=== PATIENT | male | born 1940 | race Caucasian/White ===

== ENCOUNTER 2017-07-25 11:00 | Inpatient (IN) | payer OTHER, MEDICARE ==
[2017-06-16 14:01] VITALS: BMI 33.0
[2017-06-16 14:43] LABS: PTT PATIENT 25.8 SECONDS (21.0-31.0)
--- NOTE | 2017-06-16 14:51 | PAT Medication Instructions ---
Service Date Jun 16, 2017. Current Home Medication List Aspirin (Aspirin Ec), 81 MG PO QAM Bioflavonoid Products (Ludmila-C), 1 TAB PO QAM Calcium Citrate-Vitamin D (Citracal + D3 Maximum), 1 TAB PO QAM Escitalopram Oxalate (Lexapro), Unknown Dose PO QAM Levothyroxine Sodium (Levothyroxine Sodium), 1 TAB PO 2XWK Levothyroxine Sodium (Levothyroxine Sodium), 0.5 TAB PO 5XWK Memantine (Namenda), 10 MG PO BID Multivitamin (Multivitamin), 1 TAB PO QPM Oxcarbazepine (Trileptal), 2 TAB PO BID Potassium Chloride (Micro-K Ext Rel), 10 MEQ PO QAM Pravastatin (Pravachol ), Unknown Dose PO HS Risperidone (Risperdal), 0.5 MG PO HS Rivastigmine Tartrate (Exelon), 6 MG PO BID Medication Instructions For Your Scheduled Surgery - Hold the following medications the morning of surgery: Potassium Chloride (Micro-K Ext Rel), 10 MEQ PO QAM Bioflavonoid Products (Ludmila-C), 1 TAB PO QAM Calcium Citrate-Vitamin D (Citracal + D3 Maximum), 1 TAB PO QAM - Take the following medications the morning of surgery with a sip of water OTHERWISE NOTHING TO EAT OR DRINK AFTER MIDNIGHT: Rivastigmine Tartrate (Exelon), 6 MG PO BID Aspirin (Aspirin Ec), 81 MG PO QAM Escitalopram Oxalate (Lexapro), Unknown Dose PO QAM Levothyroxine Sodium (Levothyroxine Sodium) Oxcarbazepine (Trileptal), 2 TAB PO BID Memantine (Namenda), 10 MG PO BID - Take the following medications as scheduled the night before surgery: Rivastigmine Tartrate (Exelon), 6 MG PO BID Pravastatin (Pravachol ), Unknown Dose PO HS Risperidone (Risperdal), 0.5 MG PO HS Oxcarbazepine (Trileptal), 2 TAB PO BID Memantine (Namenda), 10 MG PO BID Multivitamin (Multivitamin), 1 TAB PO QPM If you have any questions please call us at [phone] or [phone] or [phone]
[2017-06-16 15:06] LABS: BASO % 0.8 %; BASO ABS # 0.05 K/uL (0-0.2); EOS ABS # 0.31 K/uL (0-0.5); HEMATOCRIT 44.1 % (42-52); HEMOGLOBIN 14.9 g/dL (14.0-18.0); IG# 0.03 K/uL (0.00-0.02); LYMPH % 20.5 %; LYMPH ABS # 1.26 K/uL (1.2-3.4); MEAN CELL VOLUME 92.8 fL (80-100); MEAN CORPUSCULAR HEMOGLOBIN 31.4 pg (25-34); MEAN CORPUSCULAR HGB CONC 33.8 g/dl (32-36); MEAN PLATELET VOLUME 10.5 fL (7.4-10.4); MONO ABS # 0.37 K/uL (0.11-0.59); NEUT % 67.2 %; NEUT ABS # 4.14 K/uL (1.4-6.5); PLATELET COUNT 196 K/uL (130-400); RED CELL DISTRIBUTION WIDTH CV 13.5 % (11.5-14.5); RED CELL DISTRIBUTION WIDTH SD 45.7 fL (36.4-46.3); WHITE BLOOD COUNT 6.16 K/uL (4.8-10.8)
[2017-06-16 15:13] LABS: ALBUMIN 3.8 gm/dl (3.4-5.0); CALCIUM 9.7 mg/dl (8.5-10.1); CREATININE 1.07 mg/dl (0.60-1.40); POTASSIUM 4.2 mmol/L (3.5-5.1)
--- NOTE | 2017-06-16 15:24 | DIAGNOSTIC IMAGING REPORT ---
CHEST 2 VIEWS ROUTINE CLINICAL HISTORY: PAT preoperative evaluation COMPARISON STUDY: No previous studies for comparison. FINDINGS: Mild cardiomegaly. Permanent bipolar cardiac pacemaker. Lungs are clear. Mild emphysematous change. No focal infiltrate. IMPRESSION: Chronic and postoperative change. No acute process. The above report was generated using voice recognition software. It may contain grammatical, syntax or spelling errors. Electronically signed by: Daniel Garcia M.D. 06/16/2017 3:23 PM Dictated Date/Time: 06/16/2017 3:22 PM
[2017-06-17 06:54] LABS: HEMOGLOBIN A1C 5.3 % (4.5-5.6)
[2017-07-11 14:37] VITALS: BMI 33.0
--- NOTE | 2017-07-24 11:13 | HISTORY & PHYSICAL EXAMINATION ---
DATE OF ADMISSION: 07/25/2017 CHIEF COMPLAINT: Right knee pain. HISTORY OF PRESENT ILLNESS: Jung is a 77-year-old male with a multiple year history of right knee pain. The patient rates his pain at 8/10. He has pain with his daily activities. He has limited standing and walking tolerance. Pain is worse with weightbearing. The patient has had injections, NSAID and topical treatments without relief. He has failed conservative treatment and is scheduled for right knee replacement. PAST MEDICAL HISTORY: Prostate cancer, dementia, and thyroid disease. He denies heart disease, diabetes or DVT. PAST SURGICAL HISTORY: Pacemaker insertion. SOCIAL HISTORY: The patient denies alcohol or tobacco use. He lives in a single story home. He is and retired. FAMILY HISTORY: Negative for DVT. MEDICATIONS: Potassium 99 mg daily, multivitamin 1 daily, Lexapro 5 mg daily, pravastatin 10 mg daily, Ludmila-C, rivastigmine 6 mg 1 capsule 2 times daily, Namenda 10 mg b.i.d., Synthroid 175 mcg daily, Trileptal 300 mg 2 tablets b.i.d., Risperdal 0.5 mg at bedtime, and aspirin 81 mg daily. ALLERGIES: None. REVIEW OF SYSTEMS: See HPI. Ten other systems reviewed. All negative. PHYSICAL EXAMINATION: VITAL SIGNS: Height 5 feet 2 inches, weight 193 pounds, and BMI is 35. GENERAL: This is a well-developed and well-nourished male, who is alert and oriented x3. Mood and affect are appropriate. HEENT: Normocephalic and atraumatic. Mucous membranes are moist and intact. NECK: Supple without lymphadenopathy. HEART: Regular rate and rhythm without murmurs, rubs or gallops. LUNGS: Clear to auscultation without wheezes or rhonchi. ABDOMEN: Soft and nontender. Bowel sounds are equal and active. EXTREMITIES: No ecchymosis, redness or warmth. He has varus deformity. Range of motion is from 3-115 degrees with +1 laxity. He is neurovascularly intact with +5/5 strength. X-RAY EXAMINATION: AP and lateral views show joint space narrowing and osteophyte formation. IMPRESSION: Degenerative joint disease, right knee. PLAN: The patient will be admitted for a non-block right total knee arthroplasty with Dr. Sexton. We will plan on aspirin for DVT prophylaxis. The patient would like to go to [facility] postoperatively. PCP is Dr. Stearns and information technology auditor, Dr. Luis. GIORGIO
[2017-07-25] VITALS (7 sets, daily range): BP systolic 91–142; BP diastolic 55–93; PULSE 61–86; TEMP 36.6–36.8; O2SAT 93–97; Ht 157.5 cm; Wt 83.3 kg
[~2017-07-25] VITALS: Ht 157.5 cm; Wt 83.3 kg
--- NOTE | 2017-07-25 09:44 | History & Physical Bridge Note ---
H&P Re-Evaluation Bridge Note: I have examined the patient, reviewed the History & Physical and in the interval since the performance of the History & Physical I have noted the following changes of clinical significance: No changes noted
[~2017-07-25 11:00] MED LIST: ACETAMINOPHEN 500 MG TAB PO SCH; ASPI81TA28 PO; BIOF500T PO; BUPIVACAINE 0.25% 30 ML VIAL ONE; BUPIVACAINE 0.5 % 5 MG/1 ML PF 10ML VIAL ONE; CALC1TAB9 PO; CEFAZOLIN 2000MG IV PUSH 10 ML IV SCH; CeleBREX 200 MG CAP PO SCH; DEXAMETHASONE 4 MG TAB PO SCH; ESCI1TAB6 PO; FAMOTIDINE 20 MG TAB PO SCH; GABAPENTIN 300 MG CAP PO SCH; LACTATED RINGER'S 1000ML 1,000 ML IV SCH; LACTATED RINGER'S 1000ML 500 ML IV SCH; LACTATED RINGER'S 1000ML IV SCH; LEVO175T3 PO; METOCLOPRAMIDE HCL 10 MG TAB PO SCH; MULT-506 PO; NMN5 PO; OXCA300T PO; POTA10CA28 PO; PRAV20TA PO; RISP0.5T10 PO; RIVA3CAP4 PO; ROPIVACAINE 5MG/ML 30 ML 150 MG, BUPIVACAINE 0.5% MPF INJ 30 ML, EpINEphrine HCL INJ 0.... INFIL SCH
[2017-07-25] MEDS ORDERED: MIDAZOLAM HCL 1 MG/ML 2ML VIAL ONE (11:10)
[2017-07-25] MEDS ORDERED: FENTANYL CITRATE INJ 50 MCG/1 ML 2 ML VIAL ONE (11:11)
[2017-07-25] MEDS ORDERED: ONDANSETRON INJ 2 MG/ML 2 ML VIAL ONE (11:41)
[2017-07-25] MEDS ORDERED: PROPOFOL IV EMULSION 10 MG/ML 20 ML VIAL IV ONE (11:41)
[2017-07-25] MEDS ORDERED: LIDOCAINE HCL 2% 2 ML VIAL (20MG/ML) ONE (11:41)
[2017-07-25] MEDS ORDERED: ORTHO JOINT ANESTHETIC ONE (11:55)
[2017-07-25] MEDS ORDERED: POVIDONE-IODINE OP SOLN 30 ML BTL ONE (11:55)
[2017-07-25] MEDS ORDERED: BACITRACIN 50000 UNIT VIAL ONE (11:55)
[2017-07-25] MEDS ORDERED: MoRPHine SULFATE 2 MG/ML CARP IV PRN ×2 (12:45→16:00)
[2017-07-25] MEDS ORDERED: MAGNESIUM HYDROXIDE SUSP 30 ML UDC PO PRN (12:45)
[2017-07-25] MEDS ORDERED: KETOROLAC TROMETHAMINE 30 MG/ML VIAL IV. PRN (12:45)
[2017-07-25] MEDS ORDERED: ONDANSETRON INJ 2 MG/ML 2 ML VIAL IV PRN ×2 (12:45)
[2017-07-25] MEDS ORDERED: CEFAZOLIN IV 2,000 MG in DEXTROSE 5% 50ML 50 ML IV SCH (12:45)
[2017-07-25] MEDS ORDERED: ZOLPIDEM TARTRATE 5 MG TAB PO PRN (12:45)
[2017-07-25] MEDS ORDERED: SOD PHOSPHATE/SOD BIPHOSPHATE ENEMA 132 ML BTL PR PRN (12:45)
[2017-07-25] MEDS ORDERED: HYDROmorphone INJ 2 MG/ML SYR/VIAL IV PRN (12:45)
[2017-07-25] MEDS ORDERED: ATROPINE SULFATE 0.1 MG/ML 5ML SYR IV PRN (12:45)
[2017-07-25] MEDS ORDERED: PHENYLEPHRINE 100MCG/ML 5ML SYR IV PRN (12:45)
[2017-07-25] MEDS ORDERED: KETOROLAC TROMETHAMINE 15 MG/ML VIAL IV. PRN (12:45)
[2017-07-25] MEDS ORDERED: ALUMINUM/MAGNESIUM/SIMETH (MAALOX MAX) 30 ML UDC PO PRN (12:45)
[2017-07-25] MEDS ORDERED: BISACODYL 10 MG SUPP PR PRN (12:45)
[2017-07-25] MEDS ORDERED: EpHEDrine SULFATE INJ 50 MG/ML AMP IV PRN (12:45)
[2017-07-25] MEDS ORDERED: EpHEDrine SULFATE 50MG/5ML SYR ONE (13:28)
--- NOTE | 2017-07-25 13:47 | [facility] Operative Report ---
Operative Report Operative Date Jul 25, 2017. Pre-Operative Diagnosis Right Knee Degenerative Joint Disease Post-Operative Diagnosis Right Knee Degenerative Joint Disease Procedure(s) Performed Right Total Knee Arthroplasty, Cemented utilizing Mosher & Nephew nonlocked total knee arthroplasty size 6 femur 7 tibia 12 Indu [address] Sexton Senior Sales Administrator Surgeon(s) Daniel Salazar PA-C Estimated Blood Loss 5 mL Findings Patient presents with severe end-stage DJD of the right knee with varus alignment subchondral cystic changes osteophytes marginal osteophytes sclerosis failing attempts at conservative management including physical therapy anti- inflammatories Roto-Rest activity modification injections viscus of rotations presents for total knee arthroplasty Specimens A: Right knee bone and tissue Complication(s) None Disposition Recovery Room / PACU Indications Patient presents with severe end-stage tricompartmental DJD size surgery patient was noted to have findings consistent with subchondral sclerosis osteophytes marginal osteophytes varus alignment bone the bone changes patient' s failed attempts at conservative management including physical therapy anti- inflammatories relative rest activity modification as well as corticosteroid injection patient presents for total knee arthroplasty Description of Procedure After proper prepping and draping of the Right lower extremity anterior midline incision was made over the region of the extensor extensor mechanism after meticulous hemostasis was obtained and maintained in subcutaneous tissues a medial parapatellar incision was made The patella was subluxed lateralward the medial lateral gutter were cleaned from any hypertrophic synovitis and scar tissue of the distal femoral block was placed and the distal femoral osteotomy cut was made subsequently the chamfers anterior and posterior osteotomy cuts were made utilizing the 4-in-1 block the tibia was subsequently subluxed anteriorward medial and ateral meniscal remnants were excised in their entirety remnants of the anterior and posterior cruciate ligaments were excised in their entirety excellent exposure of the proximal tibia was obtained the tibial osteotomy guide was placed on the proximal tibial osteotomy cut was made once again the knee was irrigated with copious amounts of sterile saline solution the patella was subsequently everted lateralward thickened scar tissue around the patella was removed the patella was subsequently cut utilizing a freehand technique and was drilled prepared for final preparation and placement of patella socially flexion-extension gaps were checked and the equal and symmetric trials were placed to the appropriate femoral and tibial trials with poly-spacer being placed for equal flexion and extension gaps and full range of motion including extension to 0 and flexion to 140 the trial components after having been taken to recovery range of motion was subsequently removed meticulous hemostasis was obtained and maintained subsequently a knee block injection of joint cocktail including ropivacaine 0.5% 150 mg. Bupivacaine 0.5 % epinephrine 1-200,030 mL's toradol 30 mg dexamethasone 4 mg ketamine 10 mg clonidine 100 micrograms normal saline solution 30 mg was infiltrated into the soft tissues of the posterior knee medial lateral gutters and periosteal synovium special attention was paid to protect neurovascular structures at all times subsequently trial components having been removed the knee was irrigated with sterile saline solution. debris was removed the proximal tibia was subsequently prepared and was made ready for the placement of the tibial component tibial component was also cemented and tamped into position the femoral component was subsequently placed and cemented in the position the patellar component was subsequently cemented in position because hemostasis once again obtained and maintained wound having been thoroughly irrigated with debridement and debridement lavage was performed as well as a medial parapatellar incision closed with #1 Vicryl in interrupted fashion subcutaneous was closed with #2 Vicryl skin was closed with skin clips. PA-C was necessary for prepping and drapping as well as wound closure of deep fascia Sub cutaneous tissue and skin and was necessary for the case. A sterile compressive dressing was placed patient was taken to recovery in stable condition of report dictated by Darshan I attest to the content of the Intraoperative Record and any orders documented therein. Any exceptions are noted below. I attest to the content of the Intraoperative Record and any orders documented therein. Any exceptions are noted below.
--- NOTE | 2017-07-25 14:47 | DIAGNOSTIC IMAGING REPORT ---
R KNEE 1 OR 2 VIEWS ROUTINE HISTORY: 77 years-old Male AP/LATERAL IN PACU RIGHT KNEE status post right knee total joint arthroplasty. Degenerative joint disease. COMPARISON: None available TECHNIQUE: 2 views of the right knee FINDINGS: Postoperative changes compatible with right knee total joint arthroplasty and patellar resurfacing. Surgical drain is in place. Expected postsurgical soft tissue swelling and deep tissue air without malalignment. Peripheral vascular disease. No retained foreign bodies identified. IMPRESSION: Status post right knee total joint arthroplasty and patellar resurfacing with satisfactory alignment. The above report was generated using voice recognition software. It may contain grammatical, syntax or spelling errors. Electronically signed by: Alireza Rivera M.D. 07/25/2017 2:46 PM Dictated Date/Time: 07/25/2017 2:45 PM
--- NOTE | 2017-07-25 15:40 | Anesthesiology Progress Note ---
Anesthesia Post Op Note Date & Time Jul 25, 2017 at 15:40 Vital Signs Pain Intensity: 0 Vital Signs Past 12 Hours Date Time Temp Pulse Resp B/P (MAP) Pulse Ox O2 Delivery O2 Flow Rate FiO2 07/25/17 15:30 37.1 65 18 118/74 96 Nasal Cannula 2 07/25/17 15:20 64 18 122/77 98 Nasal Cannula 2 07/25/17 15:10 63 18 117/74 97 Nasal Cannula 2 07/25/17 15:00 69 18 116/71 97 Nasal Cannula 2 07/25/17 14:50 63 18 118/70 98 Nasal Cannula 2 07/25/17 14:40 63 18 118/67 98 Nasal Cannula 2 07/25/17 14:30 64 18 107/68 98 Nasal Cannula 2 07/25/17 14:22 36.3 62 18 98/60 96 Nasal Cannula 2 07/25/17 12:00 36.6 65 18 142/93 95 Room Air Notes Mental Status: alert / awake / arousable, participated in evaluation Pt Amnestic to Procedure: Yes Nausea / Vomiting: adequately controlled Pain: adequately controlled Airway Patency, RR, SpO2: stable & adequate BP & HR: stable & adequate Hydration State: stable & adequate Anesthetic Complications: no major complications apparent
[2017-07-25] MEDS ORDERED: MoRPHine SULFATE 10 MG/ML CARP/VIAL IV PRN (16:00)
[2017-07-25] MEDS ORDERED: MoRPHine SULFATE 4 MG/ML 1 ML CARP\\VIAL IV PRN (16:00)
[2017-07-25] MEDS: FERROUS GLUCONATE 324 MG TAB PO SCH (18:34)
[2017-07-25] MEDS: PRAVASTATIN SOD 20 MG TAB PO SCH (18:34)
[2017-07-25] MEDS: CEFAZOLIN IV 2,000 MG in SYRINGE 0 ML IV SCH (21:08)
[2017-07-25] MEDS: ACETAMINOPHEN 500 MG TAB PO SCH (21:10)
[2017-07-25] MEDS: RISPERIDONE 0.5 MG TAB PO SCH (21:10)
[2017-07-25] MEDS: OXCARBAZEPINE 150 MG TAB PO SCH (21:11)
[2017-07-25] MEDS: SENNA 8.6 MG TAB PO SCH (21:11)
[2017-07-25] MEDS: DOCUSATE SODIUM 100 MG CAP PO SCH (21:12)
[2017-07-25] MEDS: MEMANTINE 5 MG TAB PO SCH (21:12)
[2017-07-25] MEDS: RIVASTIGMINE TARTRATE (EXELON) 1.5 MG CAP PO SCH (21:13)
[2017-07-25] MEDS: ASPIRIN 81 MG ECTAB PO SCH (21:13)
[2017-07-25] MEDS ORDERED: INFLUENZA VACCINE HIGH DOSE 65+ 0.5 ML SYR IM. ONE (22:00)
[2017-07-25] MEDS ORDERED: INFLUENZA ADMINISTRATION CHARGE ONE (22:00)
[2017-07-25] MEDS ORDERED: PNEUMOCOCCAL ADMINISTRATION CHARGE ONE (22:15)
[2017-07-25] MEDS ORDERED: PNEUMOCOCCAL POLYSACCHARIDES 25 MCG/0.5 ML VIAL/SYR IM. ONE (22:15)
[2017-07-25] MEDS: D5W AND 1/2NSS + 20MEQ KCL 1,000 ML IV SCH (23:45)
[2017-07-26 03:50] VITALS: BP 92/50; PULSE 64; TEMP 36.7; O2SAT 94
[2017-07-26] MEDS: CEFAZOLIN IV 2,000 MG in SYRINGE 0 ML IV SCH (04:00)
[2017-07-26] MEDS: D5W AND 1/2NSS + 20MEQ KCL 1,000 ML IV SCH ×2 (04:01→09:00)
[2017-07-26] MEDS ORDERED: NURSING VERBAL MED ORDER ONE ×2 (04:15→11:45)
[2017-07-26] MEDS: ACETAMINOPHEN 500 MG TAB PO SCH ×3 (05:22→21:55)
[2017-07-26] MEDS ORDERED: LEVOTHYROXINE 175 MCG TAB PO SCH (06:30)
[2017-07-26 06:34] LABS: HEMATOCRIT 29.3 % (42-52); HEMOGLOBIN 9.8 g/dL (14.0-18.0); MEAN CELL VOLUME 89.3 fL (80-100); MEAN CORPUSCULAR HEMOGLOBIN 29.9 pg (25-34); MEAN CORPUSCULAR HGB CONC 33.4 g/dl (32-36); MEAN PLATELET VOLUME 10.4 fL (7.4-10.4); PLATELET COUNT 144 K/uL (130-400); RED CELL DISTRIBUTION WIDTH CV 12.9 % (11.5-14.5); RED CELL DISTRIBUTION WIDTH SD 41.9 fL (36.4-46.3)
[2017-07-26 07:00] LABS: CALCIUM 8.1 mg/dl (8.5-10.1); CREATININE 0.92 mg/dl (0.60-1.40); POTASSIUM 4.6 mmol/L (3.5-5.1)
[2017-07-26 08:01] VITALS: BP 102/60; PULSE 61; TEMP 36.5; O2SAT 93
--- NOTE | 2017-07-26 08:16 | Anesthesia Procedure Note ---
Anesthesia Epidural Removal Nt Vital Signs Notes Notes: Entered in error. no epidural present.
[2017-07-26 08:18] VITALS: O2SAT 93
[2017-07-26] MEDS: PANTOprazole SOD 40 MG TAB PO SCH (09:00)
[2017-07-26] MEDS: CALCIUM 600MG + VIT D 400 IU TAB PO SCH (09:00)
[2017-07-26] MEDS: POTASSIUM CHLORIDE 10 MEQ TABCR PO SCH (09:02)
[2017-07-26] MEDS: RIVASTIGMINE TARTRATE (EXELON) 1.5 MG CAP PO SCH ×2 (09:02→20:43)
[2017-07-26] MEDS: MEMANTINE 5 MG TAB PO SCH ×2 (09:03→20:42)
[2017-07-26] MEDS: DOCUSATE SODIUM 100 MG CAP PO SCH ×2 (09:03→20:43)
[2017-07-26] MEDS: OXCARBAZEPINE 150 MG TAB PO SCH ×2 (09:04→20:42)
[2017-07-26] MEDS: MULTIVITAMIN TAB PO SCH (09:04)
[2017-07-26] MEDS: FERROUS GLUCONATE 324 MG TAB PO SCH ×3 (09:04→17:54)
[2017-07-26] MEDS: ASPIRIN 81 MG ECTAB PO SCH ×2 (09:04→20:43)
--- NOTE | 2017-07-26 09:58 | Orthopedic Progress Note ---
Orthopedic Progress Note Date of Service Jul 26, 2017. Subjective Post OP Day: 1 (s/p Right TKA) Reports: feeling well, pain controlled w PO medications, Denies: complaints, chest pain, SOB, nausea / vomiting, light headedness, calf pain Objective calves soft nontender, N/V intact, capillary refill less than 2 sec., dressing C /D/I, A&O x3, toes mobile, hemovac drainage (350cc/8 hours) Date Time Temp Pulse Resp B/P (MAP) Pulse Ox O2 Delivery O2 Flow Rate FiO2 07/26/17 08:18 93 Room Air 07/26/17 08:01 36.5 61 22 102/60 (74) 93 Room Air 07/26/17 03:50 36.7 64 18 92/50 (64) 94 Room Air 07/25/17 23:40 Room Air 07/25/17 23:29 36.8 70 18 91/55 (67) 93 Room Air 07/25/17 19:05 36.6 61 18 97/63 (74) 97 Nasal Cannula 2.0 07/25/17 18:05 36.6 86 18 107/68 (81) 95 Nasal Cannula 2.0 07/25/17 17:05 36.6 66 18 114/68 (83) 97 Nasal Cannula 2.0 07/25/17 16:35 36.6 74 16 106/66 (79) 97 Nasal Cannula 2.0 07/25/17 16:05 Nasal Cannula 2.0 07/25/17 16:05 97 Nasal Cannula 2.0 07/25/17 15:40 37.1 66 18 111/60 96 Nasal Cannula 2 07/25/17 15:30 37.1 65 18 118/74 96 Nasal Cannula 2 07/25/17 15:20 64 18 122/77 98 Nasal Cannula 2 07/25/17 15:10 63 18 117/74 97 Nasal Cannula 2 07/25/17 15:00 69 18 116/71 97 Nasal Cannula 2 07/25/17 14:50 63 18 118/70 98 Nasal Cannula 2 07/25/17 14:40 63 18 118/67 98 Nasal Cannula 2 07/25/17 14:30 64 18 107/68 98 Nasal Cannula 2 07/25/17 14:22 36.3 62 18 98/60 96 Nasal Cannula 2 07/25/17 12:00 36.6 65 18 142/93 95 Room Air Laboratory Results 24 Hours: Test 07/26/17 05:33 Hematocrit 29.3 % Hemoglobin 9.8 g/dL Prothromb Time International Ratio 1.0 Prothrombin Time 10.7 SECONDS Assessment & Plan Assessment: POD #1 s/p Right TKA -H/H stable -PT/OT -dvt proph with srikanth/scd/asa -patient would like to go to [facility], will await CM to discuss Discharge Planning Discharge Planning: uncertain DVT Prophylaxis: TEDs, SCDs, ASA
[2017-07-26] MEDS: OXYCODONE HCL IR 5 MG TAB (IMMEDIATE RELEASE) PO PRN (11:38)
[2017-07-26 11:43] VITALS: BP 96/60; PULSE 60; TEMP 36.4; O2SAT 95
--- NOTE | 2017-07-26 12:00 | Clinical Documentation Query ---
CLINICAL DOCUMENTATION QUERY A 77-year-old male with a multiple year history of right knee pain and s/p right total knee arthroplasty. In your clinical opinion is this patient being managed for: ( ) Acute blood-loss anemia ( ) Not Agree (X ) Other explanation of clinical findings (Please Explain) ( ) Unable to determine (Please Define) ( ) Need to Discuss Expected post-op blood loss The medical record reflects the following clinical findings, treatment, and risk factors. Clinical Indicators: Hgb 14.9 trending down >3gm to 9.8 Treatment: Type and cross, IV hydration Risk Factors: Age, s/p surgical intervention IF IN AGREEMENT, YOU MUST DOCUMENT ABOVE DIAGNOSTIC STATEMENT IN DAILY PROGRESS NOTES AND DISCHARGE SUMMARY. This document is not part of the patient's record. Please clarify and document your clinical opinion in the progress notes and discharge summary. Terms such as "probable", "suspected", "likely", "questionable", "possible", or "still to be ruled out" are acceptable. Thank You, Vanessa East RN [phone]
[2017-07-26] MEDS: TRAMADOL HCL 50 MG TAB PO PRN ×2 (13:13→20:42)
[2017-07-26 14:54] VITALS: BP 101/71; PULSE 60; TEMP 36.4; O2SAT 94
[2017-07-26] MEDS: PRAVASTATIN SOD 20 MG TAB PO SCH (17:54)
[2017-07-26] MEDS: RISPERIDONE 0.5 MG TAB PO SCH (20:42)
[2017-07-26] MEDS: CeleBREX 200 MG CAP PO SCH (20:43)
[2017-07-26] MEDS: SENNA 8.6 MG TAB PO SCH (20:43)
[2017-07-26 23:48] VITALS: BP 113/69; PULSE 61; TEMP 36.5; O2SAT 95
[2017-07-27] MEDS: ACETAMINOPHEN 500 MG TAB PO SCH ×2 (05:25→12:47)
[2017-07-27] MEDS: TRAMADOL HCL 50 MG TAB PO PRN ×2 (05:41→16:27)
[2017-07-27] MEDS ORDERED: LEVOTHYROXINE 175 MCG TAB PO SCH (06:30)
--- NOTE | 2017-07-27 07:17 | Orthopedic Progress Note ---
Orthopedic Progress Note Date of Service Jul 27, 2017. Subjective Reports: feeling well, Denies: chest pain, SOB, nausea / vomiting, light headedness, calf pain Additional Notes: Mild pain off and on in the operative knee. Objective calves soft nontender, N/V intact, incision C/D/I, A&O x3, toes mobile Date Time Temp Pulse Resp B/P (MAP) Pulse Ox O2 Delivery O2 Flow Rate FiO2 07/26/17 23:52 Room Air 07/26/17 23:48 36.5 61 18 113/69 (84) 95 Room Air 07/26/17 16:10 Room Air 07/26/17 14:54 36.4 60 18 101/71 (81) 94 Room Air 07/26/17 11:43 36.4 60 20 96/60 (72) 95 Room Air 07/26/17 08:25 Room Air 07/26/17 08:18 93 Room Air 07/26/17 08:01 36.5 61 22 102/60 (74) 93 Room Air Assessment & Plan Assessment: POD #2 s/p Right TKA -H/H stable -PT/OT -dvt proph with srikanth/scd/asa -Awaiting approval for [facility] Discharge Planning DVT Prophylaxis: TEDs, ASA Therapy: Physical Therapy
[2017-07-27 07:25] VITALS: BP 138/80; PULSE 64; TEMP 36.9; O2SAT 94
[2017-07-27] MEDS: MULTIVITAMIN TAB PO SCH (08:56)
[2017-07-27] MEDS: FERROUS GLUCONATE 324 MG TAB PO SCH ×2 (08:56→12:48)
[2017-07-27] MEDS: CeleBREX 200 MG CAP PO SCH (08:56)
[2017-07-27] MEDS: RIVASTIGMINE TARTRATE (EXELON) 1.5 MG CAP PO SCH (08:56)
[2017-07-27] MEDS: PANTOprazole SOD 40 MG TAB PO SCH (08:56)
[2017-07-27] MEDS: CALCIUM 600MG + VIT D 400 IU TAB PO SCH (08:56)
[2017-07-27] MEDS: DOCUSATE SODIUM 100 MG CAP PO SCH (08:57)
[2017-07-27] MEDS: OXCARBAZEPINE 150 MG TAB PO SCH (08:57)
[2017-07-27] MEDS: ASPIRIN 81 MG ECTAB PO SCH (08:57)
[2017-07-27] MEDS: MEMANTINE 5 MG TAB PO SCH (08:57)
[2017-07-27] MEDS: POTASSIUM CHLORIDE 10 MEQ TABCR PO SCH (08:57)
[2017-07-27] MEDS: OXYCODONE HCL IR 5 MG TAB (IMMEDIATE RELEASE) PO PRN (09:01)
[2017-07-27] MEDS ORDERED: ASPI81TA28 PO (12:02)
[2017-07-27] MEDS ORDERED: CLB200 PO (12:02)
[2017-07-27] MEDS ORDERED: ACET-24 PO (12:02)
[2017-07-27] MEDS ORDERED: RXC5 PO (12:02)
[2017-07-27] MEDS ORDERED: SENN-61 PO (12:02)
[2017-07-27] MEDS ORDERED: FRRG PO (12:02)
--- NOTE | 2017-07-27 12:09 | Discharge Instructions ---
Discharge Instructions Date of Service Jul 27, 2017. Admission Reason for Admission: Right Knee Osteoarthritis Discharge Discharge Diagnosis / Problem: RIGHT KNEE DJD Discharge Goals Goal(s): Decrease discomfort, Improve function, Increase independence Activity Recommendations Activity Level: Assistance Required Therapies: Physical Therapy (TKA PROTOCOL), Occupational Therapy Weightbearing Status: Right weightbearing (as tolerated) . Additional Information Patient informed of condition: Yes Advance Directives: No DNR: No Level of Care: Acute Rehab Communicable Disease: No Prognosis: Stable Garcia Catheter: No Instructions / Follow-Up Instructions / Follow-Up ACTIVITY RECOMMENDATIONS: SELF CARE INSTRUCTIONS AFTER TOTAL KNEE REPLACEMENT A. You may need to continue a physical therapy program after discharge from the hospital. There are several options available to you. Your doctor will assist you in selecting the best one for you. 1. An out-patient facility 2 to 3 times a week for therapy or home therapy. 2. Continue working on all exercises taught to you in the hospital. Your goals should be to increase bending of your knee to 90 degrees and beyond and to fully straighten your knee. B. You may progress at your own pace from walking with a walker or crutches to a cane; then to no assistive devices. C. Make walking a part of your daily routine. Be up as much as comfortable with rest periods throughout the day. Rest with leg elevation is very important. Use the ice wrap frequently for the first 3-4 weeks. D. There are no restrictions on activities. You may ride in a car, shop, participate in report manager and all social activities. E. Wear the long elastic stockings (REGIS hose) 20 hours a day for 2 weeks after surgery. They can be removed several times a day for laundering and for a bath. F. You may shower, no tub baths until cleared by your doctor. SPECIAL CARE INSTRUCTIONS: VERY IMPORTANT TO READ AND REVIEW A. There are a few signs you need to watch for after you are home. Call [facility] if you notice any of the followin. Increased severe knee pain. Some pain is expected especially when you exercise. 2. Increased swelling in your leg or knee; pain or swelling of the calf muscle in either lower leg. 3. Any fluid drainage from the incision. 4. Shortness of breath or chest pain. B. Please call [facility] at if you have any concerns or questions about your operation or recovery. The doctor or his nurse will return your call promptly. C. You must take antibiotics before dental work, bladder, bowel or other surgery. Your doctor will provide you with a permanent care to carry describing this precaution. IMPORTANT: * REMEMBER TO TAKE ASPIRIN, 81 MG, TWICE DAILY FOR 4 WEEKS UNLESS OTHERWISE DIRECTED. THIS IS YOUR BLOOD THINNER. * HIGH RISK PATIENTS MAY BE PRESCRIBED A STRONGER BLOOD THINNER. THIS WILL BE PROVIDED AT DISCHARGE. * CALL IF INCREASED PAIN, REDNESS, DRAINAGE OR FEVER GREATER THAT 101. * WEAR REGIS HOSE 20 HOURS PER DAY FOR 2 WEEKS. * DERMABOND Prineo- This is a mesh tape dressing that is covered with glue. It should remain in place until the incision is properly healed, usually 10-14 days. This dressing is designed to naturally slough off. You may trim the excess mesh tape as it peels off. Incision may be briefly wet in a shower. Dry immediately by blotting with a clean, dry towel. Do not bath or swim until instructed by your doctor. Do not scratch, rub, or pick at the dressing. Do not apply any topical ointments or lotions until dressing is completely removed and/or instructed by your doctor. There may be a small piece of suture material at one end of your incision. Do not pull or trim this. If it is bothersome or catching on clothing, you may cover it with a band-aid. . FOLLOW UP VISIT: If appointment is not already scheduled: Please call [facility] [place] to make a follow-up appointment for 2 weeks after your surgery at . Current Hospital Diet Patient's current hospital diet: Regular Diet Discharge Diet Recommended Diet: Regular Diet Fluid Restriction: 1500 ml (6 cups) Procedures Procedures Performed: Right Total Knee Arthroplasty, Cemented utilizing Mosher & Nephew nonlocked total knee arthroplasty size 6 femur 7 tibia 12 Indu 35 oval patella Pending Studies Studies pending at discharge: yes List of pending studies: Random Urinary Sodium Physician Orders On Transfer Dressing Changes: Daily dressing change if wound still draining. Follow above noted instructions for Prineo mesh/dermabond closure Vital Signs: routine Laboratory Results Hemoglobin A1c Test 06/16/17 13:46 Range/Units Estimated Average Glucose 105 mg/dl Hemoglobin A1c 5.3 4.5-5.6 % Medical Emergencies . Who to Call and When: Medical Emergencies: If at any time you feel your situation is an emergency, please call 911 immediately. . Non-Emergent Contact Non-Emergency issues call your: Surgeon Call Non-Emergent contact if: temperature is above 101.5, your pain is not controlled, your pain is worsening, wound has increased drainage, wound has increased redness . . "Provider Documentation" section prepared by Abilio Garza. . Core Measure Problem Core Measures: None [place] Drug Monitoring Program Search Results: patient reviewed within database, no issues identified
--- NOTE | 2017-07-27 12:28 | Discharge Summary ---
Orthopedic Discharge Summary Admission Date/Reason Jul 25, 2017 at 12:10 Right Knee Osteoarthritis. Discharge Date/Disposition Jul 27, 2017 Rehab Diagnosis Principal Diagnosis: right knee osteoarthritis Procedure(s) Performed Right Total Knee Arthroplasty, Cemented utilizing [employer] nonlocked total knee arthroplasty size 6 femur 7 tibia 12 Indu 35 oval patella Consultations NONE Medication Reconciliation New Medications: Acetaminophen (Sb Non-Aspirin Extra Stre) 500 Mg Tab 1000 MG PO Q8 for 21 Days, #126 TAB Celecoxib (Celebrex) 200 Mg Cap 200 MG PO BID, #60 CAP Ferrous Gluconate (Ferrous Gluconate) 324 Mg Tab 324 MG PO TIDM for 10 Days, TAB Oxycodone HCl (Oxycodone HCl) 5 Mg Tab 5-10 MG PO Q4H PRN for Pain, #60 TAB Senna (Senokot) 8.6 Mg Tab 17.2 MG PO HS for 10 Days, TAB HOLD FOR LOOSE STOOLS Changed Medications: Aspirin (Aspirin Ec) 81 Mg Tab 81 MG PO BID for 30 Days (Changed from: QAM) AFTER 30 DAYS, RESUME ONCE DAILY DOSE OF ASPIRIN Continued Medications: Bioflavonoid Products (Ludmila-C) 1 Tab Tab 1 TAB PO QAM Calcium Citrate-Vitamin D (Citracal + D3 Maximum) 1 Tab Tab 1 TAB PO QAM Escitalopram Oxalate (Lexapro) Unknown Strength Tab Unknown Dose PO QAM, TAB Levothyroxine Sodium (Levothyroxine Sodium) 175 Mcg Tab 1 TAB PO 2XWK for 90 Days, TAB 3 Refills TAKES SUN AND WED IN AM - PT CAN ONLY TAKE SYNTHROID NOT GENERIC Levothyroxine Sodium (Levothyroxine Sodium) 175 Mcg Tab 0.5 TAB PO 5XWK for 90 Days, TAB 3 Refills TAKES MON, TUES, THUR, FRI AND SAT IN AM - PT NEEDS SYNTHROID - CAN'T TAKE GENERIC FORM Memantine (Namenda) 5 Mg Tab 10 MG PO BID, TAB Multivitamin (Multivitamin) Tab 1 TAB PO QPM, TAB Oxcarbazepine (Trileptal) 300 Mg Tab 2 TAB PO BID, TAB Potassium Chloride (Micro-K Ext Rel) 10 Meq Capcr 10 MEQ PO QAM, CAP Pravastatin (Pravachol ) Unknown Strength Tab Unknown Dose PO HS, TAB Risperidone (Risperdal) 0.5 Mg Tab 0.5 MG PO HS, TAB Rivastigmine Tartrate (Exelon) 3 Mg Cap 6 MG PO BID, CAP Admission Physical Exam As per Admitting History & Physical. Hospital Course Patient was a same day admission after undergoing a successful right TKA. he tolerated the procedure well. Post-operatively, his activity was progressed and well tolerated. Please refer to daily progress notes and PT notes for complete details. After exam on 07/27/17, patient felt to be stable for transfer to [facility]. Patient will f/u in the office in 2 weeks for further evaluation including x-rays and incision check, sooner if having any issues or concerns. Below are pertinent labs/studies during their hospital stay: Last Resulted CBC 07/26/17 05:33 Last Resulted BMP 07/26/17 05:33 Last Vital Signs Documentation Date Time Temp Pulse Resp B/P (MAP) Pulse Ox O2 Delivery O2 Flow Rate FiO2 07/27/17 08:00 Room Air 07/27/17 07:25 36.9 64 16 138/80 (99) 94 07/25/17 19:05 2.0 Discharge Instructions ACTIVITY RECOMMENDATIONS: SELF CARE INSTRUCTIONS AFTER TOTAL KNEE REPLACEMENT A. You may need to continue a physical therapy program after discharge from the hospital. There are several options available to you. Your doctor will assist you in selecting the best one for you. 1. An out-patient facility 2 to 3 times a week for therapy or home therapy. 2. Continue working on all exercises taught to you in the hospital. Your goals should be to increase bending of your knee to 90 degrees and beyond and to fully straighten your knee. B. You may progress at your own pace from walking with a walker or crutches to a cane; then to no assistive devices. C. Make walking a part of your daily routine. Be up as much as comfortable with rest periods throughout the day. Rest with leg elevation is very important. Use the ice wrap frequently for the first 3-4 weeks. D. There are no restrictions on activities. You may ride in a car, shop, participate in tub tender and all social activities. E. Wear the long elastic stockings (REGIS hose) 20 hours a day for 2 weeks after surgery. They can be removed several times a day for laundering and for a bath. F. You may shower, no tub baths until cleared by your doctor. SPECIAL CARE INSTRUCTIONS: VERY IMPORTANT TO READ AND REVIEW A. There are a few signs you need to watch for after you are home. Call [facility] if you notice any of the followin. Increased severe knee pain. Some pain is expected especially when you exercise. 2. Increased swelling in your leg or knee; pain or swelling of the calf muscle in either lower leg. 3. Any fluid drainage from the incision. 4. Shortness of breath or chest pain. B. Please call [facility] at if you have any concerns or questions about your operation or recovery. The doctor or his nurse will return your call promptly. C. You must take antibiotics before dental work, bladder, bowel or other surgery. Your doctor will provide you with a permanent care to carry describing this precaution. IMPORTANT: * REMEMBER TO TAKE ASPIRIN, 81 MG, TWICE DAILY FOR 4 WEEKS UNLESS OTHERWISE DIRECTED. THIS IS YOUR BLOOD THINNER. * HIGH RISK PATIENTS MAY BE PRESCRIBED A STRONGER BLOOD THINNER. THIS WILL BE PROVIDED AT DISCHARGE. * CALL IF INCREASED PAIN, REDNESS, DRAINAGE OR FEVER GREATER THAT 101. * WEAR REGIS HOSE 20 HOURS PER DAY FOR 2 WEEKS. * DERMABOND Prineo- This is a mesh tape dressing that is covered with glue. It should remain in place until the incision is properly healed, usually 10-14 days. This dressing is designed to naturally slough off. You may trim the excess mesh tape as it peels off. Incision may be briefly wet in a shower. Dry immediately by blotting with a clean, dry towel. Do not bath or swim until instructed by your doctor. Do not scratch, rub, or pick at the dressing. Do not apply any topical ointments or lotions until dressing is completely removed and/or instructed by your doctor. There may be a small piece of suture material at one end of your incision. Do not pull or trim this. If it is bothersome or catching on clothing, you may cover it with a band-aid. FOLLOW UP VISIT: If appointment is not already scheduled: Please call [facility] to make a follow-up appointment for 2 weeks after your surgery at .
[2017-07-27 15:16] VITALS: BP 132/73; PULSE 56; TEMP 36.6; O2SAT 97
[2017-07-27] MEDS: PRAVASTATIN SOD 20 MG TAB PO SCH (16:27)
--- NOTE | 2017-07-28 15:50 | Anesthesiology Progress Note ---
Anesthesia Post Op Note Date & Time Jul 26, 2017 at 0815 Notes Mental Status: alert / awake / arousable, participated in evaluation Pt Amnestic to Procedure: Yes Nausea / Vomiting: adequately controlled Pain: adequately controlled Airway Patency, RR, SpO2: stable & adequate BP & HR: stable & adequate Hydration State: stable & adequate Neuraxial Anesthesia: sensory block resolved Anesthetic Complications: no major complications apparent
== END 2017-07-27 16:55 | DRG 470 ==
LOC: C.ACU 11:00 → C.3E 12:10 → ENRESERV 15:20
PROVIDERS: ADMIT Orthopaedic Surgery; ATTEND Orthopaedic Surgery
PROC: 0SRC0J9 Replacement of Right Knee Joint with Synthetic Substitute, Cemented, Open Approach (ICD-10-PCS; principal; 2017-07-25 13:00)
DX: M17.11 Unilateral primary osteoarthritis, right knee (principal); Z79.82 Long term (current) use of aspirin; Z79.899 Other long term (current) drug therapy